=== PATIENT | male | born 1950 | race Caucasian/White ===

== ENCOUNTER 2021-01-05 13:06 | Emergency (ER) | payer MEDICARE, MEDICAID ==
[~2021-01-05] VITALS: Ht 165.1 cm; Wt 68.0 kg
[2021-01-05 13:06] VITALS: BP_SYST 148
--- NOTE | 2021-01-05 13:06 | NUR ---
BROUGHT IN BY [facility], TRIAGED AND VSS. PT PLACED IN WHEELCHAIR AND TAKEN TO WAITING ROOM.
--- NOTE | 2021-01-05 13:08 | NUR ---
Pt brought by self, A&Ox4, pt presents to ER with L leg/ L calf pain, denies trauma, skin pink and warm, cap refill <3, VSS.
--- NOTE | 2021-01-05 14:32 | NUR ---
DR SALINAS EVALUATING PT IN [facility]
[2021-01-05 16:31] LABS: BASOPHILS % (AUTO) 0.4 % (0.0-2.0); EOSINOPHILS % (AUTO) 0.5 % (0.0-4.0); HEMATOCRIT 29.7 % (36-54); HEMOGLOBIN 9.4 g/dL (14.0-18.0); LYMPHOCYTES # (AUTO) 2.8 K/uL (1.0-5.5); LYMPHOCYTES % (AUTO) 30.4 % (20.5-51.5); MEAN CORPUSCULAR HEMOGLOBIN 21 pg (27-31); MEAN CORPUSCULAR HGB CONC 32 % (32-36); MEAN CORPUSCULAR VOLUME 68 fL (79.0-98.0); MONOCYTES # (AUTO) 0.8 K/uL (0.0-1.0); MONOCYTES % (AUTO) 8.2 % (1.7-9.3); NEUTROPHILS # (AUTO) 5.5 K/uL (1.8-7.7); NEUTROPHILS % (AUTO) 60.5 % (40.0-70.0); PLATELET COUNT (AUTO) 302 K/uL (130-430); RED BLOOD CELL COUNT(AUTO) 4.38 MIL/uL (4.2-6.2); WHITE BLOOD COUNT (AUTO) 9.1 K/uL (4.8-10.8)
[2021-01-05 16:55] LABS: CALCIUM 9.7 mg/dL (8.4-11.0); CREATININE 0.79 mg/dL (0.55-1.30); POTASSIUM 4.5 mmol/L (3.5-5.1)
[2021-01-05 17:00] LABS: ALBUMIN 3.4 g/dL (3.4-4.8); TOTAL BILIRUBIN 0.4 mg/dL (0.0-1.0)
[2021-01-05 17:04] LABS: PROTHROMBIN TIME 10.1 SECS (9.5-12.5)
[2021-01-05] MEDS ORDERED: LORA-259 PO (17:20)
[2021-01-05] MEDS ORDERED: IBUP-1971 PO (17:20)
[2021-01-05 17:41] VITALS: BP_SYST 148
--- NOTE | 2021-01-05 17:41 | NUR ---
Patient given written and verbal discharge instructions and verbalizes understanding. ER MD discussed with patient the results and treatment provided. Patient in stable condition. ID arm band removed. Rx of ativan and motrin given. Patient educated on pain management and to follow up with PMD. Pain Scale 0/10. Opportunity for questions provided and answered. Medication side effect fact sheet provided.
== END 2021-01-05 17:41 | disposition home or self-care (01) ==
LOC: SED 13:06
DX: R25.2 Cramp and spasm (principal); Z79.899 Other long term (current) drug therapy
CPT/HCPCS: 36415; 80053; 83735; 85025; 85610-TC; 85730-TC; 93971; 99284